=== PATIENT | female | born 1975 | race Hispanic/Latino ===

== ENCOUNTER → 2021-01-23 | Outpatient (CLI) | payer OTHER | END | disposition home or self-care (01) | LOC: OIH 10:08 | PROVIDERS: ATTEND Internal Medicine Cardiovascular Disease | DX: Z13.6 Encounter for screening for cardiovascular disorders (principal); R06.09 Other forms of dyspnea; I25.10 Atherosclerotic heart disease of native coronary artery without angina pectoris | CPT/HCPCS: 75571 ==

== ENCOUNTER → 2021-06-22 | Outpatient (CLI) | payer OTHER, SELFPAY | END | disposition home or self-care (01) | LOC: SHCH 15:21 | PROVIDERS: ATTEND Internal Medicine Cardiovascular Disease | DX: I82.493 Acute embolism and thrombosis of other specified deep vein of lower extremity, bilateral (principal); I25.10 Atherosclerotic heart disease of native coronary artery without angina pectoris; E78.5 Hyperlipidemia, unspecified | CPT/HCPCS: 93970 ==

== ENCOUNTER → 2023-12-19 | Outpatient (CLI) | payer BC | END | disposition home or self-care (01) | LOC: RAH 15:03 | PROVIDERS: ATTEND Obstetrics & Gynecology | DX: R93.89 Abnormal findings on diagnostic imaging of other specified body structures (principal); N85.2 Hypertrophy of uterus | CPT/HCPCS: 76856 ==